=== PATIENT | male | born 1995 | race Caucasian/White ===

== ENCOUNTER → 2020-08-23 11:22 | Outpatient (BNVA) | payer OTHER, SELFPAY | PROVIDERS: Visit Provider Nurse Practitioner Family | DX: Z20.828 Contact with and (suspected) exposure to other viral communicable diseases (principal) | CPT/HCPCS: 87635 ==

== ENCOUNTER → 2020-12-22 18:29 | Outpatient (BNVA) | payer SELFPAY | PROVIDERS: Visit Provider Nurse Practitioner | DX: S96.912A Strain of unspecified muscle and tendon at ankle and foot level, left foot, initial encounter (principal); X58.XXXA Exposure to other specified factors, initial encounter; Z68.26 Body mass index [BMI] 26.0-26.9, adult; F17.210 Nicotine dependence, cigarettes, uncomplicated; Z71.89 Other specified counseling | CPT/HCPCS: 73630 ==

== ENCOUNTER 2021-08-03 15:40 | Emergency (ER) | payer SELFPAY ==
[2021-08-03] VITALS (7 sets, daily range): BP systolic 123–147; BP diastolic 73–80; PULSE 63–81; RESP 16–18; TEMP 36.9; O2SAT 98–100
--- NOTE | 2021-08-03 17:05 | ED_ITS ---
HPI - Abdominal Pain General: Chief Complaint: Abdominal Pain Stated Complaint: Abdominal Pain Time Seen by Provider: 08/03/21 17:05 History of Present Illness: HPI narrative: Mr Washington is a 26-year-old gentleman without significant past medical history presents emergency department due to abdominal pain. He reports abdominal burning sensation in the epigastric region for the past week or so, and this was initially mild and intermittent however is now become more persistent. He endorses being at work earlier today when he bent forward and had immediate onset worsening pain, he endorses a tight band around his abdomen which feels aching and burning. Mild associated nausea but no vomiting. No diarrhea. This is worse with movement however it does not go with rest. Intensity is moderate to severe. No abdominal trauma reported he denies similar episodes in the past. No other specific changes in health, exacerbating, or alleviating factors Review of Systems General: Reports: 10 or more systems reviewed and unremarkable except in HPI and below PFSH ED PFSH: Family History Grandfather Hypertension Mother Hypertension Denies family history of Lung disease Social History Smoking and tobacco status: current some day smoker Alcohol intake: never Physical Exam Narrative: EXAM NARRATIVE: GENERAL/CONSTITUTIONAL -mildly ill-appearing. Uncomfortable due to abdominal pain Eyes - PERRL, no conjunctival injection ENMT - Atraumatic external nose and ears. Moist mucous membranes NECK - supple. trachea midline CARDIOVASCULAR - regular rate and rhythm. Peripheral pulses 2+ and equal RESPIRATORY -clear to auscultation bilaterally. No retractions or accessory muscle use. ABDOMEN/GI -tenderness palpation of the epigastric and upper quadrants, nondistended, minimal tenderness to percussion without evidence of remote peritonitis MSK - Extremities without obvious deformity or tenderness to palpation SKIN - Warm, Dry NEURO - alert and appropriately oriented. Moves all extremities equally. Course ED course: - Patient was seen and evaluated by me at bedside - Patient placed on cardiac monitors, IV access obtained - Initial evaluation notable for abdominal exam as noted above -Symptom treatment ordered - Labs notable for mild leukocytosis, no significant metabolic abnormalities. Urinalysis not concerning for urinary tract infection. - Imaging notable for no acute finding to explain to patient symptom - Upon serial reexamination after treatment the patient was markedly improved with near complete resolution of symptoms after treatment - Based on patient history, evaluation, labs, and imaging as interpreted the most likely cause of the patient's condition is unclear. However based on history provided with recent GERD in February that be that patient had sudden onset reflux with position change and increased intra-abdominal pressure which created localized esophageal/gastric irritation - The results of ED evaluation were discussed with the patient including prescriptions and/or symptomatic cares (if applicable) including appropriate and responsible use, followup plan, and return precautions. Diet modification and avoidance of NSAIDs were also discussed. The patient verbalized understanding and felt safe for discharge. - Patient discharged in satisfactory condition. Vital Signs: Vital signs: Vital Signs Temperature 98.5 F 08/03/21 15:51 Pulse Rate 63 08/03/21 19:49 Respiratory Rate 16 08/03/21 18:17 Blood Pressure 123/73 08/03/21 19:49 Pulse Oximetry 98 08/03/21 19:49 MDM - Abdominal Pain Medical Records: Attestation: I reviewed the patient's medical records. Lab Data: Attestation: I reviewed the patient's lab results. Labs: Lab Results 08/03/21 08/03/21 08/03/21 18:20 18:20 18:20 WBC 12.1 10^3/uL H 10 ^3/uL (4.0-10.0) RBC 4.47 10^6/uL 10^6 /uL (4.1-5.3) Hgb 13.2 g/dL g/dL (11.7-16.6) Hct 40.0 % L % (42.0-52.0) MCV 89.5 fl fl (80-94) MCH 29.5 pg pg (28.0-34.0) MCHC 33.0 g/dL g/dL (30.0-36.0) RDW 12.7 % % (12.1-15.1) Plt Count 199 10^3/cmm 10^3 /cmm (130-400) MPV 10.7 fL H fL (7.4-10.4) Neut % (Auto) 79.1 % % Lymph % (Auto) 13.6 % % [place] % (Auto) 5.8 % % Eos % (Auto) 0.6 % % Baso % (Auto) 0.4 % % Neut # (Auto) 9.61 10^3/uL H 10 ^3/uL (1.8-7.7) Lymph # (Auto) 1.7 10^3/uL 10^3/ uL (0.8-4.8) [place] # (Auto) 0.7 10^3/uL 10^3/ uL (0.2-0.9) Eos # (Auto) 0.1 10^3/uL 10^3/ uL (0.0-0.8) Baso # (Auto) 0.1 10^3/uL 10^3/ uL (0.0-0.1) Nucleated RBC % (a uto) 0 % % Nucleated RBCs # 0.0 /100WBC /100W BC Sodium 140 mmol/L mmol/L (136-145) Potassium 3.5 mmol/L mmol/L (3.5-5.1) Chloride 104 mmol/L mmol/L (98-107) Carbon Dioxide 24 mmol/L mmol/L (22-29) Anion Gap 15.5 (5-19) BUN 9 mg/dL mg/dL (6-20) Creatinine 0.6 mg/dL L mg/dL (0.7-1.2) GFR Calculation 160.4 mL/min H mL /min (90-130) Glucose 83 mg/dL mg/dL (65-115) Calculated Osmolal ity 288 mOsm/kg mOsm/ kg (285-295) Calcium 9.6 mg/dL mg/dL (8.5-10.5) Total Bilirubin 0.5 mg/dL mg/dL (0.15-1.2) AST 21 U/L U/L (0-40) ALT 19 U/L U/L (0-41) Alkaline Phosphata se 60 IU/L IU/L (40-130) Total Protein 7.3 g/dL g/dL (6.6-8.7) Albumin 4.5 g/dL g/dL (3.5-5.2) Globulin 2.8 g/dL g/dL (1.3-4.6) Lipase 18 U/L U/L (13-60) Urine Color Yellow (Yellow) Urine Appearance Clear (CLEAR) Urine pH 9 H (5-7) Ur Specific Gravit y 1.010 (1.005-1.030) Urine Protein Neg (Negative) Urine Glucose (UA) Norm (Normal) Urine Ketones 2+ H (Negative) Urine Blood Neg (Negative) Urine Nitrate Negative (Negative) Urine Bilirubin Neg (Negative) Prot Sulfosalicyli c Acd Negative (Negative) Urine Urobilinogen Norm mg/dL mg/dL (Negative) Ur Leukocyte Pat ase Negative (Negative) Discharge Plan Discharge Patient Disposition: Home Clinical Impression: Abdominal pain, Gastroesophageal reflux disease Condition: Stable Prescriptions: No Action No Known Home Medications RF: 0 Discharge Orders: Discharge ED (Routine); Ordered 08/03/21 Ordered By: Klever Miller Discharge Diet: Advance as tolerated and Clear Liquid Discharge Activity: Resume usual activity Patient Instructions: Diet for Stomach Ulcers and Gastritis (ED), GERD (Gastroesophageal Reflux Disease) (ED), Abdominal Pain (ED), Opioid Safety Activity Restrictions/Additional Instructions: Thank you for visiting the emergency department. You were seen and evaluated for abdominal pain. The exact cause of your symptoms is unclear, CT did not show an obvious cause. This may be related to reflux, we recommend restarting daily use of a proton pump inhibitor or H2 nnamdi which are available [id number]. You may use [id number] medication for symptoms however please do not exceed the daily recommended dosage. Please avoid NSAIDs. Please follow-up with your primary care provider. Please return to the emergency department for worsening symptoms or anything else that you are concerned about and feel needs emergency department evaluation. As you received morphine in the emergency department you should not drive, combine it with other sedating medication, or perform any dangerous activities until this is fully out of your system. Coding Level of Care Code ED Manager Enrollment for Asher Cox
--- NOTE | 2021-08-03 17:38 | CTR_ITS ---
PROCEDURE INFORMATION: Exam: CT Abdomen And Pelvis With Contrast Exam date and time: 08/03/2021 5:38 PM Age: 26 years old Clinical indication: Abdominal pain; Localized; Upper; Additional info: Upper abdominal pain TECHNIQUE: Imaging protocol: Computed tomography of the abdomen and pelvis with contrast. Total images: 234 Radiation optimization: All CT scans at this facility use at least one of these dose optimization techniques: automated exposure control; mA and/or kV adjustment per patient size (includes targeted exams where dose is matched to clinical indication); or iterative reconstruction. Contrast material: OMNI 300; Contrast volume: 95 ml; Contrast route: INTRAVENOUS (IV); COMPARISON: CT Abdomen/Pelvis Renal [id number] 05/15/2019 9:27 PM RADIATION DOSE METRICS: Total DLP (mGy-cm): 1347.54 FINDINGS: Lungs: Limited assessment of the lung bases fails to reveal evidence for active cardiopulmonary process. Calcified granuloma right middle lobe. Liver: No visible hepatic mass or cystic structure. Gallbladder and bile ducts: Normal. No calcified stones. No ductal dilation. Pancreas: Pancreas is unremarkable. No visible pancreatic ductal ectasia. Spleen: Spleen unremarkable. Adrenal glands: Adrenal glands unremarkable. Kidneys and ureters: No hydronephrosis or perinephric fluid. Bilateral small rare simple renal cortical cyst the dominant equator right kidney measuring only 11 mm. No follow-up recommended. No visible nephrolithiasis or visible ureterolithiasis. Stomach and bowel: Assessment of the hollow viscus fails to reveal evidence of active or acute pathology. Nonobstructed bowel pattern. No visible acute diverticulitis. No visible adynamic or reactive ileus. Appendix: The appendix is visualized and appears noninflamed. Intraperitoneal space: No visible pneumoperitoneum or intraperitoneal ascites. Vasculature: Patent portal vein. The abdominal aorta is nonaneurysmal. Lymph nodes: No current visible evidence of active mesenteric or retroperitoneal lymphadenopathy. No visible evidence of mesenteric lymphadenitis or active mesenteritis/panniculitis. Urinary bladder: Urinary bladder unremarkable. Reproductive: Unremarkable as visualized. Bones/joints: No visible active or acute osseous pathology. Soft tissues: Unremarkable. CT/CT abdomen pelvis w con* [id number] IMPRESSION: Currently no visible evidence for acute abdominal or pelvic pathologic process. COMMENTS: Consistent with the [employer]'s Incidental Findings Committee white paper (J Am Randy Radiol 2018): Any incidental renal lesion less than 1 cm or classified as too small to characterize, or any incidental cystic renal lesion characterized as simple-appearing, is likely benign. No follow-up imaging is recommended for these lesions per consensus recommendations based on imaging criteria. Radiation Dose CTDIVOL = (mGy): DLP = 1347.54 (mGy-cm)
[2021-08-03] MEDS: iohexol 300 mg/mL 100 mL Btl IV (18:04)
[2021-08-03] MEDS: lidocaine 2% viscous 15 ML, aluminum-mag hydrox-simethicon 30 ML, sucralfate oral liq 1 GM PO (18:16)
[2021-08-03] MEDS: ondansetron 2 mg/ML SDV 2 mL 4 MG IVP (18:17)
[2021-08-03] MEDS: morphine 4 mg/mL SDV 1 mL IVP (18:17)
[2021-08-03 18:28] LABS: Basophils # 0.1 10^3/uL (0.0-0.1); Basophils % 0.4 %; Eosinophils # 0.1 10^3/uL (0.0-0.8); Eosinophils % 0.6 %; Hemoglobin 13.2 g/dL (11.7-16.6); Lymphocytes # 1.7 10^3/uL (0.8-4.8); Lymphocytes % 13.6 %; Mean Corpuscular Hemoglobin 29.5 pg (28.0-34.0); Mean Corpuscular Volume 89.5 fl (80-94); Mean Platelet Volume 10.7 fL (7.4-10.4); Monocytes # 0.7 10^3/uL (0.2-0.9); Monocytes % 5.8 %; Neutrophils # 9.61 10^3/uL (1.8-7.7); Neutrophils % 79.1 %; Nucleated Red Blood Cells % 0 %; Platelet Count 199 10^3/cmm (130-400); Red Blood Count 4.47 10^6/uL (4.1-5.3); Red Cell Distribution Width 12.7 % (12.1-15.1); White Blood Count 12.1 10^3/uL (4.0-10.0)
[2021-08-03 18:29] LABS: Add Urine Microscopic? NO; Charge for UA Resulting for Rev
[2021-08-03 18:33] LABS: Bilirubin Urine Neg (Negative); Blood Urine Neg (Negative); Glucose Urine UA Norm (Normal); Ketones Urine 2+ (Negative); Leukocyte Esterase Urine Negative (Negative); Nitrate Urine Negative (Negative); Protein Urine Neg (Negative); Sulfosalicylic Acid Urine Negative (Negative); Urine Appearance Clear (CLEAR); Urine Color Yellow (Yellow); Urobilinogen Urine Norm (Negative); pH Urine 9 (5-7)
[2021-08-03] MEDS: lactated ringers 1,000 ML 999 ML IV (18:51)
[2021-08-03 19:26] LABS: Alanine Aminotransferase 19 U/L (0-41); Albumin Level 4.5 g/dL (3.5-5.2); Alkaline Phosphatase 60 IU/L (40-130); Anion Gap 15.5 (5-19); Aspartate Amino Transferase 21 U/L (0-40); Blood Urea Nitrogen 9 mg/dL (6-20); Calcium 9.6 mg/dL (8.5-10.5); Carbon Dioxide 24 mmol/L (22-29); Chloride 104 mmol/L (98-107); Globulin 2.8 g/dL (1.3-4.6); Glomerular Filtration Rate 160.4 mL/min (90-130); Glucose 83 mg/dL (65-115); Lipase 18 U/L (13-60); Osmolality Calculated 288 mOsm/kg (285-295); Potassium 3.5 mmol/L (3.5-5.1); Sodium 140 mmol/L (136-145); Total Bilirubin 0.5 mg/dL (0.15-1.2); Total Protein 7.3 g/dL (6.6-8.7)
== END 2021-08-03 19:49 | disposition home or self-care (01) ==
PROVIDERS: Emergency Provider Emergency Medicine
DX: R10.9 Unspecified abdominal pain (principal); K21.9 Gastro-esophageal reflux disease without esophagitis; F17.210 Nicotine dependence, cigarettes, uncomplicated
CPT/HCPCS: 74177; 80053; 81003; 83690; 85025; 96361; 96374; 96375; 99284; J2270; J2405; Q9967

== ENCOUNTER 2024-04-03 11:26 | Emergency (ER) | payer SELFPAY ==
[2024-04-03 11:37] VITALS: BP 120/74; PULSE 91; RESP 17; TEMP 36.6; O2SAT 98; BMI 28.4
--- NOTE | 2024-04-03 11:46 | XRR_ITS ---
PROCEDURE INFORMATION: Exam: XR Right Finger(s) Exam date and time: 04/03/2024 12:10 PM Age: 29 years old Clinical indication: Injury or trauma; Other: Smashed finger; Blunt trauma (contusions or hematomas); Right; Middle finger; Additional info: Trauma; Middle TECHNIQUE: Imaging protocol: Radiologic exam of the right fingers. Views: Minimum 2 views. COMPARISON: No relevant prior studies available. FINDINGS: Bones/joints: Normal. Soft tissues: Soft tissue swelling around the PIP joint. Otherwise, unremarkable soft tissues. XR/XR finger RT min 2V [id number] IMPRESSION: Soft tissue swelling around the PIP joint. Otherwise, unremarkable.
--- NOTE | 2024-04-03 13:08 | W.ED.UPPEXIN ---
HPI - Extremity Injury (Upper) General: Chief Complaint: Wound/Laceration Stated Complaint: smashed finger Time Seen by Provider: 04/03/24 12:55 Source: patient Mode of arrival: ambulatory Limitations: no limitations History of Present Illness: Patient is a 29-year-old male presents to ED today for evaluation of trauma to his right ring finger. Patient states about a week ago he accidentally cut the finger. He states the laceration was minor/superficial and seem to be healing well with conservative therapies at home. He states today he got the same finger caught in the door and wants to make sure it is not broken. Tetanus is up-to-date. complaint: injury to: right and finger Onset (ago): hour(s) Other Extremity Injury: Right: fingers Other injuries: none Place: home Severity: moderate Relieving factors: immobilization Exacerbating factors: movement of extremity Context: direct blow Associated symptoms: Reports no associated symptoms; Denies weakness in extremities Review of Systems Musc: Reports: extremity pain (R finger) and extremity swelling (R finger) Skin/Breast: Reports: other (cut to R finger) Neuro: Denies: numbness in extremities, weakness in extremities or sensory changes [facility] ED PFSH: Family History Grandfather Hypertension Mother Hypertension Denies family history of Lung disease Social History Smoking and tobacco/nicotine status: current some day tobacco/nicotine user Alcohol intake: never Substance/Drug Use: never Physical Exam Const: COMMON NORMALS: no acute distress, average body habitus, no limitations, healthy appearing, alert and well nourished Extremity: COMMON NORMALS: full ROM and capillary refill normal GENERAL: Yes normal exam except as noted RIGHT UPPER EXTREMITY: Yes hand & digits (TTP/edema/contusion R ring finger PIP joint) Right hand and digits: Yes inspection (small healing abrasion/laceration; no drainage/streaking) and Yes neurovascular exam (normal) Neuro: COMMON NORMALS: moves all extremities, no focal motor deficits and no sensory deficits noted SENSORIUM/ORIENTATION: Yes alert Course Vital Signs: Vital signs: Vital Signs Temperature 97.8 F 04/03/24 11:37 Pulse Rate 91 04/03/24 11:37 Respiratory Rate 17 04/03/24 11:37 Blood Pressure 120/74 04/03/24 11:37 Pulse Oximetry 98 04/03/24 11:37 Oxygen Delivery Me thod Room Air 04/03/24 11:37 MDM - Extremity Injury (Upper) Medical Decision Making Patient has edema to his right ring finger PIP joint from smashing it in the door today. He states joint was not swollen prior to the contusion. He has a healing small laceration that does not exhibit signs of infection. His finger XR is unremarkable. Recommend he continue conservative therapies at home. Return ED precautions given. Medical Records I reviewed the patient's medical records. Lab Data Radiology Impressions Finger X-Ray 04/03/24 11:46 IMPRESSION: Soft tissue swelling around the PIP joint. Otherwise, unremarkable. All radiology interpretation(s) finalized by discharge Discharge Plan Discharge Patient Disposition: Home Clinical Impression: Contusion of right ring finger Condition: Stable Prescriptions: No Action No Known Home Medications Discharge Orders: Discharge ED (Routine); Ordered 04/03/24 Ordered By: Renetta Devi Coding Level of Care Code ED German Tutor for Asher Cox
== END 2024-04-03 13:19 | disposition home or self-care (01) ==
PROVIDERS: Emergency Provider Physician Assistant
DX: S60.041A Contusion of right ring finger without damage to nail, initial encounter (principal); F17.210 Nicotine dependence, cigarettes, uncomplicated; W23.0XXA Caught, crushed, jammed, or pinched between moving objects, initial encounter
CPT/HCPCS: 73140; 99283

== ENCOUNTER 2025-05-23 08:52 | Emergency (ER) | payer SELFPAY ==
--- NOTE | 2025-05-23 08:59 | XR_ITS ---
WS: [id number] Right knee, 3 views, 05/23/2025 Clinical Data: Pain Comparison: None. Findings: No fractures or dislocations are seen. The joint spaces are normal. The patella is intact. The soft tissues are unremarkable. XR/XR knee RT 3V* [id number] Impression: Negative right knee.
[2025-05-23 09:10] VITALS: BP 119/67; PULSE 74; RESP 16; TEMP 36.8; O2SAT 100; BMI 30.1
[2025-05-23 10:21] LABS: Hematocrit 43.4 % (37-53); Hemoglobin 13.90 g/dL (11.27-16.99); Mean Corpuscular HGB Conc 32.0 g/dL (30-55); Mean Corpuscular Hemoglobin 28.7 pg (27-33); Mean Corpuscular Volume 89.5 fl (82-101); Nucleated Red Blood Cells % 0 %; Platelet Count 187 10^3/cmm (157-399); Red Blood Count 4.85 10^6/uL (3.85-5.65); White Blood Count 9.71 10^3/uL (3.29-11.43)
--- NOTE | 2025-05-23 11:56 | ED_ITS ---
HPI - Extremity Problem 2 General: Chief complaint: Extremity Problem,Nontraumatic Stated complaint: R knee swollen & pain Time Seen by Provider: 05/23/25 08:59 Source: patient History of Present Illness: Patient is a 30-year-old male who presents to the emergency department with right knee pain and swelling. 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 He noticed swelling in the infrapatellar region of his right knee approximately three weeks ago. The patient denies any significant trauma to the area but acknowledges chronic occupational stress to his knees. He reports pain and discomfort in the area, particularly with movement. The patient denies fever, redness, or significant warmth over the affected area. He has not attempted any treatment prior to presentation. Related Data Previous Rx's ?Medication ?Instructions ?Recorded sulfamethoxazole 800 1 tab PO BID 7 days #14 tabs 05/23/25 mg-trimethoprim 160 mg tablet (Bactrim DS) Allergies Allergy/AdvReac Type Severity Reaction Status Date / Time No Known Allergies Allergy Verified 12/22/20 18:21 PFS ED 2 PFSH: Family History Grandfather Hypertension Mother Hypertension Denies family history of Lung disease Social History Smoking and tobacco/nicotine status: current some day tobacco/nicotine user Alcohol intake: never Substance/Drug Use: never Physical Exam 2 Const: COMMON NORMALS: no acute distress, average body habitus, alert and well nourished GENERAL APPEARANCE: cooperative ORIENTATION/CONSCIOUSNESS: Yes awake HENMT: COMMON NORMALS: normocephalic and atraumatic HEAD & SCALP: n ormocephalic and atraumatic Eye: COMMON NORMALS: conjunctivae normal CONJUNCTIVA: Yes conjunctivae normal Neck/C-Spine: GENERAL: Yes normal visual inspection Resp: COMMON NORMALS: normal respiratory effort, No retractions and No use of accessory muscles Cardio: COMMON NORMALS: regular rhythm and Peripheral pulses 2+ throughout RHYTHM: regular rhythm PERIPHERAL PULSES: Peripheral pulses 2+ throughout GI: COMMON NORMALS: Soft to palpation and non-tender PALPATION: Yes Soft to palpation Extremity: COMMON NORMALS: full ROM and no pedal edema NARRATIVE EXTREMITY EXAM: Full range of motion of the right knee. Patient has some mild swelling to the right infrapatellar region. There is no significant erythema or warmth but he does have tenderness to the area of swelling. 2+ DP and PT pulses bilateral lower extremities. Neuro: COMMON NORMALS: no focal motor deficits SENSORIUM/ORIENTATION: Yes alert Skin: COMMON NORMALS: no rashes or lesions noted GENERAL SKIN EXAM: no rashes or lesions noted Procedures Abscess I/D Site: lower extremity Side (if applicable): right Local Anesthetic: lidocaine 1% and with epi Amount of anesthesia used (mL): 5 Technique: other (Incised with 10 blade ) Amount of fluid expressed (mL): 0 Irrigation: Yes Packing used?: none Course 2 Vital Signs: Vital signs: Vital Signs Temperature 98.2 F 05/23/25 09:10 Pulse Rate 74 05/23/25 09:10 Respiratory Rate 16 05/23/25 09:10 Blood Pressure 119/67 05/23/25 09:10 Pulse Oximetry 100 05/23/25 09:10 Oxygen Delivery Me thod Room Air 05/23/25 09:10 MDM - Extremity (Nontraumatic) Medical Decision Making ROS: Constitutional: Denies fever. Musculoskeletal: Positive for right knee pain and swelling. Reports some limitation in range of motion due to pain. Also reports some back issues. Skin: Denies significant erythema over the affected area. All other systems reviewed and negative. MEDICATIONS AND ALLERGIES: - Meds: None reported - Allergies: No known drug allergies PAST HISTORICAL DATA: - PMH: Reports some back issues, details not specified - PSH: None reported - Social: Works in air conditioning installation for 11 years, frequently on knees without protective equipment INITIAL IMPRESSION AND PLAN: Given the history and presentation, the primary working diagnosis is infrapatellar bursitis of the right knee. Additional considerations include cellulitis, abscess, septic bursitis, and prepatellar bursitis. Based on this initial impression I will order a right knee x-ray to rule out any underlying bony abnormality, CBC to evaluate for systemic infection, and perform an incision and drainage of the affected area to evaluate for purulent material. Will administer local anesthesia with lidocaine with epinephrine prior to the procedure. Will prescribe antibiotics following the procedure. TEST INTERPRETATIONS: - X-ray right knee: Negative for acute abnormality - CBC: White count 9.7, Hemoglobin 13.9, Hematocrit 43, Platelets 97. No significant leukocytosis noted. PROCEDURES: PROCEDURE: Incision and Drainage of Right Infrapatellar Bursitis INFORMED CONSENT: Patient provided informed verbal consent for incision and drainage of the right knee infrapatellar bursitis versus abscess after discussion of risks, benefits, and alternatives. ANESTHESIA: 5 mL of 1% lidocaine with epinephrine was infiltrated around the area of greatest fluctuance along the infrapatellar bursa region. PREPARATION: The area was prepped with Betadine using aseptic technique. PROCEDURE DETAILS: Using a 10-blade scalpel, an approximately 2 cm horizontal incision was made over the area of greatest swelling and fluctuance in the infrapatellar bursa region. Hemostats were used to bluntly dissect down into the subcutaneous tissue. Scant to no purulent drainage was obtained. The cavity was thoroughly irrigated with Betadine and sterile saline. POST-PROCEDURE: A wound dressing was applied. Patient tolerated the procedure well with no immediate complications. CONSIDERED BUT NOT PERFORMED: Aspiration of the bursa CONSIDERED but NOT DONE due to clinical presentation more consistent with bursitis requiring incision and drainage rather than simple aspiration. FINAL IMPRESSION: Based on all the above, my clinical impression is most compatible with infrapatellar bursitis of the right knee, likely related to chronic occupational trauma. The clinical picture is not currently suggestive of septic arthritis, fracture, or internal derangement of the knee joint. Although other conditions were also considered, they were deemed unlikely based on the clinical information available. CLINICAL DISPOSITION: The patient's current condition is stable in my estimation and the most appropriate and indicated disposition at this time is discharge home with antibiotics and outpatient follow-up. The patient is safe for discharge as he demonstrates no signs of systemic infection, has normal vital signs, and the local procedure was completed successfully. The minimal drainage obtained during the procedure suggests a non- purulent bursitis rather than a significant abscess requiring more aggressive intervention. The patient demonstrates understanding of wound care instructions and return precautions. He has been prescribed appropriate antibiotics to prevent secondary infection of the surgical site and to treat any underlying low-grade infection that may have contributed to the bursitis. RISK STRATIFICATION AND CLINICAL DECISION RULES APPLIED: No formal clinical decision rules were applicable to this case. Clinical decision-making was based on history, physical examination findings, laboratory results, and imaging studies which collectively supported the diagnosis of infrapatellar bursitis and guided the decision for incision and drainage with outpatient antibiotic therapy. CASE SUMMARY: 30-year-old male with occupational history of prolonged kneeling without protective equipment presented with right knee pain and swelling in the infrapatellar region for approximately three weeks. Physical examination revealed infrapatellar swelling without significant erythema or warmth. X-ray of the right knee was negative for acute abnormality, and CBC showed no significant leukocytosis. Patient underwent incision and drainage of the infrapatellar bursa with minimal purulent drainage obtained. The wound was irrigated and dressed appropriately. Patient was prescribed Bactrim DS one tablet twice daily for seven days and discharged home with wound care instructions and return precautions. Follow-up with PCP was recommended. Lab Data 05/23/25 10:12 Radiology Impressions Knee X-Ray 05/23/25 08:59 Impression: Negative right knee. Laboratory Results WBC 9.71 10^3/uL (3.29-11.43) 05/23/25 10:12 RBC 4.85 10^6/uL (3.85-5.65) 05/23/25 10:12 Hgb 13.90 g/dL (11.27-16.99) 05/23/25 10:12 Hct 43.4 % (37-53) 05/23/25 10:12 MCV 89.5 fl (82-101) 05/23/25 10:12 MCH 28.7 pg (27-33) 05/23/25 10:12 MCHC 32.0 g/dL (30-55) 05/23/25 10:12 RDW 12.5 % (12.1-15.1) 05/23/25 10:12 Plt Count 187 10^3/cmm (157-399) 05/23/25 10:12 MPV 10.4 fL (7.4-10.4) 05/23/25 10:12 Neut % (Auto) 66.8 % 05/23/25 10:12 Lymph % (Auto) 21.9 % 05/23/25 10:12 [place] % (Auto) 9.4 % 05/23/25 10:12 Eos % (Auto) 1.1 % 05/23/25 10:12 Baso % (Auto) 0.4 % 05/23/25 10:12 Neut # (Auto) 6.48 10^3/uL (1.8-7.7) 05/23/25 10:12 Lymph # (Auto) 2.1 10^3/uL (0.8-4.8) 05/23/25 10:12 [place] # (Auto) 0.9 10^3/uL (0.2-0.9) 05/23/25 10:12 Eos # (Auto) 0.1 10^3/uL (0.0-0.8) 05/23/25 10:12 Baso # (Auto) 0.0 10^3/uL (0.0-0.1) 05/23/25 10:12 Nucleated RBC % (auto) 0 % 05/23/25 10:12 Nucleated RBCs # 0.0 /100WBC 05/23/25 10:12 All radiology interpretation(s) finalized by discharge Discharge Plan Discharge Patient Disposition: Home Clinical Impression: Infrapatellar bursitis of right knee Condition: Stable Prescriptions: New sulfamethoxazole-trimethoprim [Bactrim DS] 800-160 mg tablet 1 tab PO BID 7 Days Qty: 14 0RF Discharge Orders: Discharge ED (Routine); Ordered 05/23/25 Ordered By: Luigi Schreiber Patient Instructions: Knee Bursitis (ED), Opioid Safety, Pain Management, Patient Portal & Shanti Instructions Activity Restrictions/Additional Instructions: MEDICATIONS: - Bactrim DS (sulfamethoxazole-trimethoprim): Take 1 tablet by mouth twice daily for 7 days - You may take [id number] pain medications such as acetaminophen (Tylenol) or ibuprofen (Advil, Motrin) as needed for pain, following package instructions WOUND CARE: - Keep the wound clean and dry - Change the dressing daily or if it becomes wet or soiled - Clean the wound gently with mild soap and water, pat dry, and apply a new sterile dressing - Do not soak the wound in water (no swimming, baths) for at least 48 hours - Showers are permitted after 24 hours, but do not let water directly hit the wound ACTIVITY: - Avoid kneeling on the affected knee until healing is complete - Use knee pads when returning to work to prevent recurrence - You may resume normal activities as tolerated, but avoid activities that cause pain FOLLOW-UP: - Schedule an appointment with your primary care provider within 7-10 days - Bring this discharge summary to your follow-up appointment RETURN TO THE EMERGENCY DEPARTMENT IF: - Increasing redness, warmth, swelling, or pain around the wound - Pus or foul-smelling drainage from the wound - Red streaks extending from the wound - Fever greater than 100.4?F (38?C) - Inability to move or bear weight on the affected leg - Any other concerning symptoms Print Language: Romansh Coding Level of Care Code ED Gauger Chief for Asher Cox
[2025-05-23] MEDS: lidocaine-epi 1% 20 mL INJ INJECTION (12:12)
== END 2025-05-23 12:13 | disposition home or self-care (01) ==
PROVIDERS: Family Medicine; Emergency Provider Student in an Organized Health Care Education/Training Program
DX: M71.561 Other bursitis, not elsewhere classified, right knee (principal)
CPT/HCPCS: 10060; 36415; 73562; 85025; 99284; J9999

== ENCOUNTER 2025-07-12 18:26 | Emergency (ER) | payer SELFPAY ==
[2025-07-12 18:50] VITALS: BP 118/76; PULSE 77; RESP 14; TEMP 36.7; O2SAT 99
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
[2025-07-12] MEDS: HYDROcodone-acetaminophen 5-325 mg Tablet 1 TAB PO (21:39)
== END 2025-07-12 21:45 | disposition home or self-care (01) ==
PROVIDERS: Emergency Provider Physician Assistant
DX: S93.411A Sprain of calcaneofibular ligament of right ankle, initial encounter (principal); Z72.0 Tobacco use; W20.8XXA Other cause of strike by thrown, projected or falling object, initial encounter
CPT/HCPCS: 73610; 99283; J9999